=== PATIENT | male | born 1955 | race Caucasian/White ===

== ENCOUNTER 2017-02-21 05:18 | Emergency (ER) | payer BC ==
[2017-02-21 05:46] LABS: HEMOGLOBIN 14.3 gm/dl (14.0-17.5); RED BLOOD COUNT 4.7 M/UL (4.20-5.50); WHITE BLOOD COUNT 8.6 K/UL (4.5-11.0)
[2017-02-21 06:05] LABS: BUN/CREATININE RATIO 14 (0-10)
== END 2017-02-21 10:25 | disposition home or self-care (01) ==
LOC: ER1 05:18 → ZEROF 08:10 → ER1 08:10 → ZEROF 08:10
PROVIDERS: Family Medicine
DX: E11.649 Type 2 diabetes mellitus with hypoglycemia without coma (principal); F15.10 Other stimulant abuse, uncomplicated; E87.6 Hypokalemia; I11.0 Hypertensive heart disease with heart failure; I50.32 Chronic diastolic (congestive) heart failure; G47.33 Obstructive sleep apnea (adult) (pediatric); Z88.0 Allergy status to penicillin; Z79.82 Long term (current) use of aspirin; Z79.84 Long term (current) use of oral hypoglycemic drugs; Z79.899 Other long term (current) drug therapy
CPT/HCPCS: 36415; 36600; 51702; 70450; 71010; 80053; 80307; 81001; 82009; 82550; 82553; 82803; 82962; 83874; 84484; 85025; 87040; 87086; 93005; 96361; 96374; 99285; G0378; G0480; J2310; J7030

== ENCOUNTER 2021-03-14 11:31 | Emergency (ER) | payer OTHER, MEDICARE ==
[2021-03-14 12:44] LABS: HEMOGLOBIN 19.4 gm/dl (14.0-17.5); RED BLOOD COUNT 6.59 M/UL (4.20-5.50); WHITE BLOOD COUNT 18.6 K/UL (4.5-11.0)
[2021-03-14 13:10] LABS: BUN/CREATININE RATIO 34 (0-10)
== END 2021-03-14 18:20 | disposition home or self-care (01) ==
LOC: ER1 11:31
PROVIDERS: Physician Assistant Medical
DX: E11.65 Type 2 diabetes mellitus with hyperglycemia (principal); E78.5 Hyperlipidemia, unspecified; I11.9 Hypertensive heart disease without heart failure; Z88.0 Allergy status to penicillin
CPT/HCPCS: 36600; 70450; 71045; 80053; 80307; 81001; 82009; 82803; 82962; 85025; 93005; 96374; 96376; 99284